=== PATIENT | female | born 1990 | race Two or more races ===

== ENCOUNTER 2016-09-28 01:53 | Emergency (ER) | payer MEDICAID ==
[2016-09-28] MEDS ORDERED: FLUCONAZOLE 150 MG TAB PO ONE (03:18)
== END 2016-09-28 03:26 | disposition home or self-care (01) ==
LOC: ER 01:53
DX: B37.3 Candidiasis of vulva and vagina (principal); F17.210 Nicotine dependence, cigarettes, uncomplicated
CPT/HCPCS: 81001; 81025; 87088